=== PATIENT | male | born 1985 | race Caucasian/White ===

== ENCOUNTER 2018-06-04 19:14 | Emergency (ER) | payer OTHER ==
[2018-06-04 19:15] VITALS: BMI 24.3
[2018-06-04 19:38] VITALS: RESP 18
[2018-06-04 20:47] VITALS: BP 122/78; PULSE 75; TEMP 98.2; O2SAT 100
--- NOTE | 2018-06-05 00:06 | ED PDOC ---
Arrival/HPI - General Chief Complaint: GI Problem Historian: Patient - History of Present Illness Narrative History of Present Illness (Text): 06/05/18 00:06 33 year old male, with a past medical history of heroin abuse, who presents to the emergency department complaining of withdrawals from heroin. Patient reports he takes "10 to 15 bags" of IV heroin daily, with his last reportedly yesterday evening. Patient endorses nausea, but denies any vomiting, fever, headaches, chills, chest pain, or any other drug use. Time/Duration: 24 hours Symptom Onset: Gradual Symptom Course: Unchanged Activities at Onset: Light Context: Home Past Medical History - Provider Review Nursing Documentation Reviewed: Yes - Infectious Disease Hx of Infectious Diseases: None - Tetanus Immunization Tetanus Immunization: Up to Date - Cardiac Hx Cardiac Disorders: No - Pulmonary Hx Respiratory Disorders: Yes Hx Asthma: Yes - Neurological Hx Neurological Disorder: No - HEENT Hx HEENT Disorder: No - Renal Hx Renal Disorder: No - Endocrine/Metabolic Hx Endocrine Disorders: No - Hematological/Oncological Hx Blood Disorders: Yes - Integumentary Hx Dermatological Disorder: No - Musculoskeletal/Rheumatological Hx Musculoskeletal Disorders: No Hx Falls: No - Gastrointestinal Hx Gastrointestinal Disorders: No - Genitourinary/Gynecological Hx Genitourinary Disorders: No - Psychiatric Hx Psychophysiologic Disorder: Yes Hx Depression: Yes Hx Substance Use: Yes - Surgical History Hx Orthopedic Surgery: Yes (left wrist) - Anesthesia Hx Anesthesia: Yes - Suicidal Assessment Feels Threatened In Home Enviroment: No Family/Social History - Physician Review Nursing Documentation Reviewed: Yes Family/Social History: Unknown Family HX Smoking Status: Current Some Days Smoker Hx Alcohol Use: No Hx Substance Use: Yes Substance used: heroin Hx Substance Use Treatment: Yes (METHADONE) Allergies/Home Meds Allergies/Adverse Reactions: Allergies No Known Allergies Allergy (Verified 06/04/18 19:31) Home Medications: Home Meds Medication Instructions Recorded Confirmed Bictegrav/Emtricit/Tenofov Ala 1 tab PO DAILY 06/04/18 06/04/18 [Biktarvy 50-200-25 mg Tablet] Glecaprevir/Pibrentasvir [Mavyret 1 tab PO DAILY 06/04/18 06/04/18 100-40 mg Tablet] Sulfamethoxazole 1 tab PO BID 06/04/18 06/04/18 hydrOXYzine HCl [Atarax] 50 mg PO Q4H PRN 06/04/18 06/04/18 Review of Systems - Physician Review All systems were reviewed & negative as marked: Yes - Review of Systems Constitutional: absent: Fevers Respiratory: absent: SOB, Cough Cardiovascular: absent: Chest Pain Gastrointestinal: Nausea. absent: Abdominal Pain, Vomiting Musculoskeletal: absent: Back Pain, Neck Pain Physical Exam Vital Signs Temp Pulse Resp BP Pulse Ox 06/04/18 20:24 98.2 F 75 18 122/78 100 06/04/18 19:36 98.5 F 72 18 111/70 97 Temperature: Afebrile Blood Pressure: Normal Pulse: Regular Respiratory Rate: Normal Appearance: Positive for: Well-Appearing, Non-Toxic, Comfortable Pain Distress: None Mental Status: Positive for: Alert and Oriented X 3 - Systems Exam Head: Present: Atraumatic, Normocephalic Pupils: Present: PERRL Extroacular Muscles: Present: EOMI Conjunctiva: Present: Normal Mouth: Present: Moist Mucous Membranes Neck: Present: Normal Range of Motion Respiratory/Chest: Present: Clear to Auscultation, Good Air Exchange. No: Respiratory Distress, Accessory Muscle Use Cardiovascular: Present: Regular Rate and Rhythm, Normal S1, S2. No: Murmurs Abdomen: No: Tenderness, Distention, Peritoneal Signs Back: Present: Normal Inspection Upper Extremity: Present: Normal Inspection, Other (extremity has numerous track gates, no signs of infection). No: Cyanosis, Edema Lower Extremity: Present: Normal Inspection, Other (extremity has numerous track gates, no signs of infection). No: Edema Neurological: Present: GCS=15, CN II-XII Intact, Speech Normal Skin: Present: Warm, Dry, Normal Color. No: Rashes Psychiatric: Present: Alert, Oriented x 3, Normal Insight, Normal Concentration Medical Decision Making ED Course and Treatment: 06/05/18 00:05 Impression: 33 year old male presents to the Emergency department complaining of withdrawals from heroin. Differential Diagnosis included but are not limited to: Plan: -- Zofran -- Reassess and disposition Prior Visits: Notes and results from previous visits were reviewed. Progress Notes: 06/05/18 23:42 I spoke to Dillon Cortes, who is with [facility], he sent patient here after reviewing case, patient will be discharged and will follow up with him for correction treatment, patient understands plan. - Medication Orders Current Medication Orders: Discontinued Medications Ondansetron HCl (Zofran Odt) 8 mg PO STAT STA Stop: 06/04/18 20:13 Last Admin: 06/04/18 20:22 Dose: 8 mg - Scribe Statement The provider has reviewed the documentation as recorded by the Minhiberik Gardner All medical record entries made by the Scribe were at my direction and personally dictated by me. I have reviewed the chart and agree that the record accurately reflects my personal performance of the history, physical exam, medical decision making, and the department course for this patient. I have also personally directed, reviewed, and agree with the discharge instructions and disposition. Disposition/Present on Arrival - Present on Arrival Any Indicators Present on Arrival: No History of DVT/PE: No History of Uncontrolled Diabetes: No Urinary Catheter: No History of Decub. Ulcer: No History Surgical Site Infection Following: None - Disposition Have Diagnosis and Disposition been Completed?: Yes Diagnosis: Opiate dependence Disposition: HOME/ ROUTINE Disposition Time: 20:00 Condition: GOOD Discharge Instructions (ExitCare): Drug Abuse and Drug Addiction (DC) Additional Instructions: ZEHRA SANTIAGO, thank you for letting us take care of you today. Your provider was Cristo Dey DO. The emergency medical care you received today was directed at your acute symptoms. If you were prescribed any medication, please fill it and take as directed. It may take several days for your symptoms to resolve. Return to the Emergency Department if your symptoms worsen, do not improve, or if you have any other problems. Please contact your doctor or call one of the physicians/clinics you have been referred to that are listed on the Patient Visit Information form that is included in your discharge packet. Bring any paperwork you were given at discharge with you along with any medications you are taking to your follow up visit. Our treatment cannot replace ongoing medical care by a primary care provider outside of the emergency department. Thank you for allowing the [facility] [employer] team to be part of your care today. Follow up with [facility] tomorrow morning to arrange for a correction treatment plan. Good luck. Prescriptions: Ondansetron ODT [Zofran ODT] 8 mg PO Q8 PRN #20 odt PRN Reason: Nausea/Vomiting Referrals: [facility] Marcio Req, [Non-Staff] - Follow up with primary Forms: [employer] (Sen[place]e)
== END 2018-06-04 20:24 | disposition home or self-care (01) ==
LOC: ED 19:14
DX: F11.20 Opioid dependence, uncomplicated (principal)